=== PATIENT | female | born 1975 | race Caucasian/White ===

== ENCOUNTER 2025-09-21 06:16 | Day surgery (SDC) | payer OTHER, SELFPAY | END 2025-09-21 11:59 | disposition home or self-care (01) | LOC: GI 06:16 | PROVIDERS: ATTENDING PHYSICIAN Internal Medicine Gastroenterology | DX: R13.10 Dysphagia, unspecified (principal); K31.7 Polyp of stomach and duodenum; K29.70 Gastritis, unspecified, without bleeding; K29.50 Unspecified chronic gastritis without bleeding | CPT/HCPCS: 43239; 88305; 88342 ==